=== PATIENT | male | born 1970 | race Caucasian/White ===

== ENCOUNTER 2017-11-19 08:51 | Inpatient (IN) | payer OTHER ==
[~2017-11-19] VITALS: Ht 175.3 cm; Wt 74.5 kg
[2017-11-19] VITALS (11 sets, daily range): BP systolic 102–153; BP diastolic 65–94
[2017-11-19 09:56] LABS: ALBUMIN 3.8 g/dL (3.4-5.0); ANION GAP 11 mmol/L (5-15); CALCIUM 10.2 mg/dL (8.5-10.1); CHLORIDE 104 mmol/L (98-107)
[2017-11-19 10:00] LABS: ALANINE AMINOTRANSFERASE 45 U/L (12-78); ALKALINE PHOSPHATASE 102 U/L (45-117); BILIRUBIN,TOTAL 1.8 mg/dL (0.2-1.0); CREATININE 1.19 mg/dL (0.7-1.3); TOTAL PROTEIN 8.4 g/dL (6.4-8.2)
[2017-11-19 10:19] LABS: MEAN CORPUSCULAR HEMOGLOBIN 36.1 pg (27.5-34.5); MEAN CORPUSCULAR VOLUME 106.2 fL (81-97); RED BLOOD COUNT 3.68 x10^6/uL (4.38-5.82); RED CELL DISTRIBUTION WIDTH 18.1 % (9.4-14.8)
[2017-11-19 10:29] LABS: MEAN PLATELET VOLUME 9.9 fL (7.4-10.4); PLATELET COUNT 102 x10^3/uL (130-400)
[2017-11-19 10:30] LABS: MD YES
[2017-11-19 10:35] LABS: BAND#(MANUAL) 0.26 x10^3/uL; BANDS%(MANUAL) 3 % (0-7); BASOS#(MANUAL) 0.09 x10^3/uL (0-0.1); BASOS% (MANUAL) 1 % (0-1); LYMPH#(MANUAL) 0.62 x10^3/uL (1-3.4); LYMPHS% (MANUAL) 7 % (22-44); MONOS% (MANUAL) 8 % (2-9); REACTIVE LYMPHS # (MANUAL) 0.09 x10^3/uL (0-0); REACTIVE LYMPHS % (MANUAL) 1 % (0-0); SEG#(MANUAL) 7.04 x10^3/uL (1.8-6.8); SEGS% (MANUAL) 80 % (42-75)
[2017-11-19 10:37] LABS: ANISOCYTOSIS 1+
[2017-11-19 10:38] LABS: <PLATELET ESTIMATE> DECREASED; <PLT MORPHOLOGY> NORMAL PLT MORPH; TARGET CELLS 1+
[2017-11-19 11:40] LABS: SALICYLATE LEVEL 6.2 mg/dL (2.8-20.0)
[2017-11-19 11:48] LABS: ACETAMINOPHEN < 2 mcg/mL (10-30)
[2017-11-19] MEDS ORDERED: SODIUM CHLORIDE 0.9% 1,000ML IVBOLUS ONE (12:00)
[2017-11-19] MEDS ORDERED: THIAMINE 200 MG in SODIUM CHLORIDE 0.9% 50 ML IV ONE (12:00)
[2017-11-19 12:09] LABS: CULTURE INDICATED? YES; MICROSCOPIC INDICATED
[2017-11-19 12:15] LABS: AMPHETAMINE SCREEN, URINE Negative (Negative); BARBITURATE SCREEN, URINE Negative (Negative); BENZODIAZEPINE SCREEN, URINE Negative (Negative); CANNABINOID SCREEN, URINE Negative (Negative); COCAINE SCREEN, URINE Negative (Negative); METHADONE SCREEN, URINE Negative (Negative); OPIATE SCREEN, URINE Negative (Negative)
[2017-11-19] MEDS ORDERED: THIAMINE 100 MG/ML, 2ML ONE (12:45)
[2017-11-19] MEDS ORDERED: MAGNESIUM SULFATE 1 GM, THIAMINE 100 MG, FOLIC ACID 1 MG, MVI ADULT 10 ML in SODIUM CHL... IV ONE (13:00)
[2017-11-19] MEDS ORDERED: SODIUM CHLORIDE FLUSH 10ML SYR IVF PRN (13:00)
[2017-11-19] MEDS: SODIUM CHLORIDE 0.9% 1,000 ML IV SCH (13:41)
[2017-11-19] MEDS ORDERED: ONDANSETRON 2MG/ML, 2ML IVPush PRN (14:00)
[2017-11-19] MEDS ORDERED: morphine SULFATE 10 MG/ML, 1ML IVPush PRN (14:00)
[2017-11-19] MEDS ORDERED: LORazepam 2 MG/ML, 1ML IVPush PRN (14:00)
[2017-11-19] MEDS ORDERED: POTASSIUM CHLORIDE 40 MEQ in SODIUM CHLORIDE 0.9% 500 ML IV ONE (14:00)
[2017-11-19] MEDS ORDERED: hydrALAzine 20 MG/ML, 1ML IVPush PRN (14:00)
[2017-11-19 14:33] LABS: FREE T4 (FREE THYROXINE) 0.81 ng/dL (0.76-1.46); THYROID STIMULATING HORMONE 1.52 mIU/L (0.358-3.740)
[2017-11-19] MEDS: BACITRACIN OPHTH OINT 500U/GM, 3.5 GM EACHEYE SCH ×2 (16:00→22:06)
[2017-11-19] MEDS: CEFTRIAXONE PMX 2GM/50ML 50 ML IV SCH (16:53)
[2017-11-19] MEDS: NICOTINE 21 MG/24 HR PATCH.TD24 TD SCH (16:54)
[2017-11-20 01:19] VITALS: BP 119/78
[2017-11-20] MEDS: LORazepam 2 MG/ML, 1ML IVPush PRN ×3 (03:08→18:16)
[2017-11-20 05:19] LABS: ALBUMIN 2.8 g/dL (3.4-5.0); ANION GAP 9 mmol/L (5-15); CALCIUM 8.3 mg/dL (8.5-10.1); CHLORIDE 112 mmol/L (98-107)
[2017-11-20 05:22] LABS: MEAN CORPUSCULAR HEMOGLOBIN 36.3 pg (27.5-34.5); MEAN CORPUSCULAR VOLUME 106.8 fL (81-97); MEAN PLATELET VOLUME 9.5 fL (7.4-10.4); PLATELET COUNT 81 x10^3/uL (130-400); RED CELL DISTRIBUTION WIDTH 17.6 % (9.4-14.8)
[2017-11-20 05:48] LABS: % IRON SATURATION 34 % (20-55); ALANINE AMINOTRANSFERASE 39 U/L (12-78); ALKALINE PHOSPHATASE 71 U/L (45-117); BILIRUBIN,TOTAL 0.8 mg/dL (0.2-1.0); CREATINE KINASE, TOTAL 1517 U/L (39-308); CREATININE 0.55 mg/dL (0.7-1.3); FOLATE LEVEL 11.6 ng/mL (3.1-17.5); IRON LEVEL 68 mcg/dL (65-175); TOTAL IRON BINDING CAPACITY 199 mcg/dL (250-450); TOTAL PROTEIN 6.4 g/dL (6.4-8.2)
[2017-11-20 06:23] LABS: BASOPHILS # (AUTO) 0.03 x10^3/uL (0-0.1); BASOPHILS % (AUTO) 1 % (0-1); EOSINOPHILS # (AUTO) 0.01 x10^3/uL (0-0.4); EOSINOPHILS % (AUTO) 0 % (1-7); LYMPHOCYTES # (AUTO) 1.32 x10^3/uL (1-3.4); LYMPHOCYTES % (AUTO) 19 % (22-44); MD SCAN; MONOCYTES % (AUTO) 10 % (2-9); NEUTROPHILS # (AUTO) 4.94 x10^3/uL (1.8-6.8); NEUTROPHILS % (AUTO) 71 % (42-75)
[2017-11-20] MEDS: PANTOPROZOLE 40MG TABLET PO SCH (07:30)
[2017-11-20 08:59] VITALS: BP 147/102
[2017-11-20] MEDS ORDERED: POTASSIUM CHLORIDE 80 MEQ in SODIUM CHLORIDE 0.9% 1,000 ML IV ONE (09:00)
[2017-11-20] MEDS: SODIUM CHLORIDE 0.9% 1,000 ML IV SCH ×2 (09:13→16:02)
[2017-11-20] MEDS: BACITRACIN OPHTH OINT 500U/GM, 3.5 GM EACHEYE SCH ×3 (09:14→20:13)
[2017-11-20] MEDS ORDERED: POTASSIUM CHLORIDE 40 MEQ in SODIUM CHLORIDE 0.9% 500 ML IV SCH (11:00)
[2017-11-20] MEDS: THIAMINE 100 MG in SODIUM CHLORIDE 0.9% 50 ML IV SCH (12:24)
[2017-11-20 15:20] VITALS: BP 122/84
[2017-11-20] MEDS: CEFTRIAXONE PMX 2GM/50ML 50 ML IV SCH (16:02)
[2017-11-20] MEDS: NICOTINE 21 MG/24 HR PATCH.TD24 TD SCH (16:07)
[2017-11-20 19:40] VITALS: BP 131/83
[2017-11-21] MEDS: LORazepam 2 MG/ML, 1ML IVPush PRN ×4 (02:47→22:28)
[2017-11-21 03:20] VITALS: BP 138/75
[2017-11-21 05:24] LABS: MEAN CORPUSCULAR HEMOGLOBIN 36.1 pg (27.5-34.5); MEAN CORPUSCULAR HGB CONC 34.1 g/dL (33.2-36.2); MEAN CORPUSCULAR VOLUME 105.8 fL (81-97); MEAN PLATELET VOLUME 9.1 fL (7.4-10.4); PLATELET COUNT 87 x10^3/uL (130-400); RED BLOOD COUNT 2.79 x10^6/uL (4.38-5.82); RED CELL DISTRIBUTION WIDTH 17.1 % (9.4-14.8)
[2017-11-21 05:25] LABS: ALANINE AMINOTRANSFERASE 45 U/L (12-78); ALBUMIN 2.6 g/dL (3.4-5.0); ANION GAP 10 mmol/L (5-15); CALCIUM 8.8 mg/dL (8.5-10.1); CHLORIDE 107 mmol/L (98-107); CREATININE 0.38 mg/dL (0.7-1.3)
[2017-11-21 05:31] LABS: ALKALINE PHOSPHATASE 95 U/L (45-117); BILIRUBIN,TOTAL 0.8 mg/dL (0.2-1.0); CREATINE KINASE, TOTAL 643 U/L (39-308); TOTAL PROTEIN 6.2 g/dL (6.4-8.2)
[2017-11-21 05:57] LABS: MD YES
[2017-11-21 05:59] LABS: BASOS#(MANUAL) 0.08 x10^3/uL (0-0.1); BASOS% (MANUAL) 1 % (0-1); EOS#(MANUAL) 0.15 x10^3/uL (0.0-0.4); EOS% (MANUAL) 2 % (1-7); LYMPHS% (MANUAL) 21 % (22-44); MONOS#(MANUAL) 0.76 x10^3/uL (0.3-2.7); MONOS% (MANUAL) 10 % (2-9); NRBC % (MANUAL) 1 % (0-1); SEG#(MANUAL) 5.02 x10^3/uL (1.8-6.8); SEGS% (MANUAL) 66 % (42-75)
[2017-11-21 06:00] LABS: <PLATELET ESTIMATE> DECREASED; <PLT MORPHOLOGY> NORMAL PLT MORPH; ANISOCYTOSIS 1+
[2017-11-21 06:02] LABS: POLYCHROMASIA 1+
[2017-11-21 07:37] VITALS: BP 123/82
[2017-11-21] MEDS ORDERED: POTASSIUM CHLORIDE 20 MEQ TAB.ER.PRT PO SCH (08:00)
[2017-11-21] MEDS: PANTOPROZOLE 40MG TABLET PO SCH (08:42)
[2017-11-21] MEDS: BACITRACIN OPHTH OINT 500U/GM, 3.5 GM EACHEYE SCH ×3 (08:42→22:28)
[2017-11-21] MEDS: ERGOCALCIFEROL 50,000 UNIT CAPSULE PO SCH (08:43)
[2017-11-21] MEDS: SODIUM CHLORIDE 0.9% 1,000 ML IV SCH ×3 (11:04→22:28)
[2017-11-21] MEDS: POTASSIUM CHLORIDE 20 MEQ PACKET PO SCH ×2 (11:05→13:00)
[2017-11-21] MEDS: THIAMINE 100 MG in SODIUM CHLORIDE 0.9% 50 ML IV SCH (12:37)
[2017-11-21 14:29] VITALS: BP 151/93
[2017-11-21 16:04] VITALS: BP 139/98
[2017-11-21] MEDS: CEFTRIAXONE PMX 2GM/50ML 50 ML IV SCH (16:14)
[2017-11-21] MEDS: NICOTINE 21 MG/24 HR PATCH.TD24 TD SCH (16:17)
[2017-11-21 20:00] VITALS: BP 163/94
[2017-11-22] MEDS: LORazepam 2 MG/ML, 1ML IVPush PRN (01:16)
[2017-11-22] MEDS ORDERED: HALOPERIDOL 5 MG/ML IM ONE ×3 (01:30→03:30)
[2017-11-22 02:00] VITALS: BP 133/88
[2017-11-22 05:56] LABS: BASOPHILS # (AUTO) 0.02 x10^3/uL (0-0.1); BASOPHILS % (AUTO) 0 % (0-1); EOSINOPHILS # (AUTO) 0.05 x10^3/uL (0-0.4); EOSINOPHILS % (AUTO) 1 % (1-7); LYMPHOCYTES # (AUTO) 1.71 x10^3/uL (1-3.4); LYMPHOCYTES % (AUTO) 26 % (22-44); MD NO; MEAN CORPUSCULAR HGB CONC 34.3 g/dL (33.2-36.2); MEAN CORPUSCULAR VOLUME 104.9 fL (81-97); MEAN PLATELET VOLUME 8.8 fL (7.4-10.4); MONOCYTES # (AUTO) 1.02 x10^3/uL (0.2-0.8); MONOCYTES % (AUTO) 16 % (2-9); NEUTROPHILS # (AUTO) 3.69 x10^3/uL (1.8-6.8); NEUTROPHILS % (AUTO) 57 % (42-75); PLATELET COUNT 126 x10^3/uL (130-400); RED BLOOD COUNT 2.88 x10^6/uL (4.38-5.82); RED CELL DISTRIBUTION WIDTH 17.2 % (9.4-14.8)
[2017-11-22 05:59] LABS: CHLORIDE 104 mmol/L (98-107)
[2017-11-22 06:18] LABS: ALANINE AMINOTRANSFERASE 53 U/L (12-78); ALBUMIN 2.7 g/dL (3.4-5.0); ALKALINE PHOSPHATASE 112 U/L (45-117); ANION GAP 9 mmol/L (5-15); BILIRUBIN,TOTAL 0.9 mg/dL (0.2-1.0); CALCIUM 9.1 mg/dL (8.5-10.1); CREATININE 0.34 mg/dL (0.7-1.3); TOTAL PROTEIN 6.6 g/dL (6.4-8.2)
[2017-11-22] MEDS: SODIUM CHLORIDE 0.9% 1,000 ML IV SCH ×2 (07:13→21:30)
[2017-11-22] MEDS: BACITRACIN OPHTH OINT 500U/GM, 3.5 GM EACHEYE SCH ×3 (08:51→21:29)
[2017-11-22] MEDS: ERGOCALCIFEROL 50,000 UNIT CAPSULE PO SCH (08:51)
[2017-11-22] MEDS: PANTOPROZOLE 40MG TABLET PO SCH (08:51)
[2017-11-22 08:56] VITALS: BP 130/93
[2017-11-22] MEDS ORDERED: POTASSIUM PHOSPHATE 44 MEQ in SODIUM CHLORIDE 0.9% 500 ML IV ONE (10:00)
[2017-11-22] MEDS ORDERED: MAGNESIUM SULFATE 6 GM in SODIUM CHLORIDE 0.9% 100 ML IV ONE (10:00)
[2017-11-22] MEDS: THIAMINE 100 MG in SODIUM CHLORIDE 0.9% 50 ML IV SCH (13:52)
[2017-11-22 14:12] VITALS: BP 133/85
[2017-11-22] MEDS: NICOTINE 21 MG/24 HR PATCH.TD24 TD SCH (16:27)
[2017-11-22] MEDS: CEFTRIAXONE PMX 2GM/50ML 50 ML IV SCH (16:27)
[2017-11-22 20:00] VITALS: BP 133/88
[2017-11-23 02:00] VITALS: BP 113/73
[2017-11-23] MEDS: SODIUM CHLORIDE 0.9% 1,000 ML IV SCH ×3 (05:20→23:24)
[2017-11-23 05:31] LABS: ALANINE AMINOTRANSFERASE 45 U/L (12-78); ALBUMIN 2.5 g/dL (3.4-5.0); ANION GAP 9 mmol/L (5-15); CALCIUM 8.1 mg/dL (8.5-10.1); CHLORIDE 104 mmol/L (98-107); CREATININE 0.34 mg/dL (0.7-1.3)
[2017-11-23 05:33] LABS: ALKALINE PHOSPHATASE 113 U/L (45-117); BILIRUBIN,TOTAL 0.6 mg/dL (0.2-1.0); TOTAL PROTEIN 6.3 g/dL (6.4-8.2)
[2017-11-23 07:42] VITALS: BP 131/81
[2017-11-23] MEDS ORDERED: BISACODYL 10 MG SUPP PR PRN (08:00)
[2017-11-23] MEDS ORDERED: LACTULOSE 20 GM/30 ML UDC PO PRN (08:00)
[2017-11-23] MEDS ORDERED: cloniDINE 0.1MG PATCH TD SCH (08:00)
[2017-11-23] MEDS: ERGOCALCIFEROL 50,000 UNIT CAPSULE PO SCH (08:36)
[2017-11-23] MEDS: VALPROIC ACID 250 MG CAPSULE PO SCH ×2 (08:36→20:56)
[2017-11-23] MEDS: DOCUSATE 100 MG CAPSULE PO SCH (08:36)
[2017-11-23] MEDS: GABAPENTIN 300 MG CAPSULE PO SCH ×3 (08:36→20:56)
[2017-11-23] MEDS: PANTOPROZOLE 40MG TABLET PO SCH (08:36)
[2017-11-23] MEDS: BACITRACIN OPHTH OINT 500U/GM, 3.5 GM EACHEYE SCH ×3 (08:37→20:56)
[2017-11-23] MEDS: THIAMINE 100 MG in SODIUM CHLORIDE 0.9% 50 ML IV SCH (12:15)
[2017-11-23 13:15] VITALS: BP 117/78
[2017-11-23] MEDS: NICOTINE 21 MG/24 HR PATCH.TD24 TD SCH (18:21)
[2017-11-23] MEDS: CEFTRIAXONE PMX 2GM/50ML 50 ML IV SCH (18:21)
[2017-11-23 19:02] VITALS: BP 109/73
[2017-11-23] MEDS: SENNA/DOCUSATE TABLET PO SCH (20:56)
[2017-11-24 01:41] VITALS: BP 130/81
[2017-11-24] MEDS: SODIUM CHLORIDE 0.9% 1,000 ML IV SCH ×2 (06:29→16:09)
[2017-11-24] MEDS: VALPROIC ACID 250 MG CAPSULE PO SCH ×2 (07:36→20:19)
[2017-11-24] MEDS: ERGOCALCIFEROL 50,000 UNIT CAPSULE PO SCH (07:36)
[2017-11-24] MEDS: GABAPENTIN 300 MG CAPSULE PO SCH ×3 (07:36→20:19)
[2017-11-24] MEDS: DOCUSATE 100 MG CAPSULE PO SCH (07:36)
[2017-11-24] MEDS: BACITRACIN OPHTH OINT 500U/GM, 3.5 GM EACHEYE SCH ×3 (07:36→20:19)
[2017-11-24] MEDS: PANTOPROZOLE 40MG TABLET PO SCH (07:36)
[2017-11-24 07:52] VITALS: BP 143/87
[2017-11-24] MEDS: THIAMINE 100 MG in SODIUM CHLORIDE 0.9% 50 ML IV SCH (12:07)
[2017-11-24 15:28] VITALS: BP 112/74
[2017-11-24] MEDS: NICOTINE 21 MG/24 HR PATCH.TD24 TD SCH (16:09)
[2017-11-24] MEDS ORDERED: CEFTRIAXONE 2,000 MG in DEXTROSE 5% 50 ML IV SCH (17:00)
[2017-11-24 19:30] VITALS: BP 117/74
[2017-11-24] MEDS: SENNA/DOCUSATE TABLET PO SCH (20:19)
[2017-11-25 02:31] VITALS: BP 130/84
[2017-11-25 05:15] LABS: MEAN CORPUSCULAR HGB CONC 33.7 g/dL (33.2-36.2); MEAN CORPUSCULAR VOLUME 106.6 fL (81-97); MEAN PLATELET VOLUME 8.2 fL (7.4-10.4); PLATELET COUNT 186 x10^3/uL (130-400); RED BLOOD COUNT 2.65 x10^6/uL (4.38-5.82)
[2017-11-25 05:21] LABS: ALBUMIN 2.3 g/dL (3.4-5.0); ANION GAP 7 mmol/L (5-15); CALCIUM 8.6 mg/dL (8.5-10.1); CHLORIDE 109 mmol/L (98-107)
[2017-11-25 05:25] LABS: ALANINE AMINOTRANSFERASE 34 U/L (12-78); ALKALINE PHOSPHATASE 99 U/L (45-117); BILIRUBIN,TOTAL 0.5 mg/dL (0.2-1.0); CREATININE 0.42 mg/dL (0.7-1.3); TOTAL PROTEIN 6.1 g/dL (6.4-8.2)
[2017-11-25 05:50] LABS: BASOPHILS # (AUTO) 0.04 x10^3/uL (0-0.1); BASOPHILS % (AUTO) 1 % (0-1); EOSINOPHILS # (AUTO) 0.07 x10^3/uL (0-0.4); EOSINOPHILS % (AUTO) 1 % (1-7); LYMPHOCYTES # (AUTO) 1.73 x10^3/uL (1-3.4); LYMPHOCYTES % (AUTO) 25 % (22-44); MD MORPH REVIEW ONLY; MONOCYTES # (AUTO) 1.05 x10^3/uL (0.2-0.8); MONOCYTES % (AUTO) 15 % (2-9); NEUTROPHILS % (AUTO) 58 % (42-75); TOXIC GRAN 1+
[2017-11-25 05:51] LABS: <PLATELET ESTIMATE> ADEQUATE; <PLT MORPHOLOGY> NORMAL PLT MORPH; ANISOCYTOSIS 1+; POLYCHROMASIA 1+
[2017-11-25] MEDS ORDERED: MAGNESIUM SULFATE PMX 4GM/100M 100 ML IV ONE (08:30)
[2017-11-25] MEDS: PANTOPROZOLE 40MG TABLET PO SCH (08:30)
[2017-11-25] MEDS ORDERED: POTASSIUM CHLORIDE 40 MEQ in SODIUM CHLORIDE 0.9% 500 ML IV ONE (08:30)
[2017-11-25] MEDS: ERGOCALCIFEROL 50,000 UNIT CAPSULE PO SCH (08:30)
[2017-11-25] MEDS: DOCUSATE 100 MG CAPSULE PO SCH (08:30)
[2017-11-25] MEDS: VALPROIC ACID 250 MG CAPSULE PO SCH ×2 (08:30→20:27)
[2017-11-25] MEDS: BACITRACIN OPHTH OINT 500U/GM, 3.5 GM EACHEYE SCH ×3 (08:30→20:27)
[2017-11-25] MEDS: GABAPENTIN 300 MG CAPSULE PO SCH ×3 (08:30→20:27)
[2017-11-25 08:31] VITALS: BP 136/79
[2017-11-25] MEDS: THIAMINE 100MG TABLET PO SCH ×2 (08:55→20:27)
[2017-11-25] MEDS: MAGNESIUM OXIDE 400 MG TABLET PO SCH ×2 (08:55→20:27)
[2017-11-25 13:49] VITALS: BP 125/80
[2017-11-25] MEDS: NICOTINE 21 MG/24 HR PATCH.TD24 TD SCH (16:26)
[2017-11-25 20:45] VITALS: BP 123/79
[2017-11-26 00:49] VITALS: BP 151/89
[2017-11-26 05:10] LABS: ALANINE AMINOTRANSFERASE 27 U/L (12-78); ALBUMIN 2.3 g/dL (3.4-5.0); ANION GAP 7 mmol/L (5-15); CALCIUM 8.5 mg/dL (8.5-10.1); CHLORIDE 109 mmol/L (98-107); CREATININE 0.41 mg/dL (0.7-1.3)
[2017-11-26 05:12] LABS: ALKALINE PHOSPHATASE 104 U/L (45-117); BILIRUBIN,TOTAL 0.5 mg/dL (0.2-1.0); TOTAL PROTEIN 6.1 g/dL (6.4-8.2)
[2017-11-26 07:57] VITALS: BP 125/82
[2017-11-26] MEDS: MAGNESIUM OXIDE 400 MG TABLET PO SCH ×2 (08:21→21:16)
[2017-11-26] MEDS: DOCUSATE 100 MG CAPSULE PO SCH (08:21)
[2017-11-26] MEDS: GABAPENTIN 300 MG CAPSULE PO SCH ×3 (08:21→21:16)
[2017-11-26] MEDS: BACITRACIN OPHTH OINT 500U/GM, 3.5 GM EACHEYE SCH ×3 (08:21→21:16)
[2017-11-26] MEDS: VALPROIC ACID 250 MG CAPSULE PO SCH ×2 (08:21→21:16)
[2017-11-26] MEDS: ERGOCALCIFEROL 50,000 UNIT CAPSULE PO SCH (08:21)
[2017-11-26] MEDS: PANTOPROZOLE 40MG TABLET PO SCH (08:21)
[2017-11-26] MEDS: THIAMINE 100MG TABLET PO SCH ×2 (08:21→21:16)
[2017-11-26] MEDS ORDERED: POTASSIUM CHLORIDE 40 MEQ in SODIUM CHLORIDE 0.9% 500 ML IV ONE ×2 (12:00→16:00)
[2017-11-26 13:25] VITALS: BP 123/70
[2017-11-26] MEDS: NICOTINE 21 MG/24 HR PATCH.TD24 TD SCH (16:06)
[2017-11-26 19:11] VITALS: BP 114/73
[2017-11-27 00:17] VITALS: BP 119/77
[2017-11-27 05:50] LABS: CHLORIDE 110 mmol/L (98-107)
[2017-11-27 05:54] LABS: ANION GAP 8 mmol/L (5-15); CALCIUM 9.2 mg/dL (8.5-10.1)
[2017-11-27 06:58] VITALS: BP 110/73
[2017-11-27] MEDS: THIAMINE 100MG TABLET PO SCH ×2 (07:40→21:40)
[2017-11-27] MEDS: PANTOPROZOLE 40MG TABLET PO SCH (07:40)
[2017-11-27] MEDS: GABAPENTIN 300 MG CAPSULE PO SCH ×3 (07:40→21:40)
[2017-11-27] MEDS: MAGNESIUM OXIDE 400 MG TABLET PO SCH ×2 (07:40→21:40)
[2017-11-27] MEDS: BACITRACIN OPHTH OINT 500U/GM, 3.5 GM EACHEYE SCH ×3 (07:40→21:40)
[2017-11-27] MEDS: DOCUSATE 100 MG CAPSULE PO SCH (07:41)
[2017-11-27] MEDS: VALPROIC ACID 250 MG CAPSULE PO SCH ×2 (07:41→21:40)
[2017-11-27] MEDS ORDERED: ERGOCALCIFEROL 50,000 UNIT CAPSULE PO ONE (09:00)
[2017-11-27 14:00] VITALS: BP 104/67
[2017-11-27] MEDS: NICOTINE 21 MG/24 HR PATCH.TD24 TD SCH (15:53)
[2017-11-27] MEDS ORDERED: LORazepam 2 MG/ML, 1ML IVPush PRN (17:30)
[2017-11-27 21:02] VITALS: BP 110/69
[2017-11-27] MEDS ORDERED: TEMAZEPAM 15 MG CAPSULE PO PRN (23:00)
[2017-11-28 01:58] VITALS: BP 130/81
[2017-11-28 06:45] VITALS: BP 104/67
[2017-11-28] MEDS: VALPROIC ACID 250 MG CAPSULE PO SCH (08:32)
[2017-11-28] MEDS: THIAMINE 100MG TABLET PO SCH (08:33)
[2017-11-28] MEDS: PANTOPROZOLE 40MG TABLET PO SCH (08:33)
[2017-11-28] MEDS: DOCUSATE 100 MG CAPSULE PO SCH (08:33)
[2017-11-28] MEDS: BACITRACIN OPHTH OINT 500U/GM, 3.5 GM EACHEYE SCH (08:33)
[2017-11-28] MEDS: MAGNESIUM OXIDE 400 MG TABLET PO SCH (08:33)
[2017-11-28] MEDS: GABAPENTIN 300 MG CAPSULE PO SCH (08:33)
[2017-11-28 12:58] VITALS: BP 104/70
[2017-11-28] MEDS ORDERED: FOLI-17 PO (14:32)
[2017-11-28] MEDS ORDERED: GABA300C10 PO (14:32)
[2017-11-28] MEDS ORDERED: BACI3.5O8 EACHEYE (14:32)
[2017-11-28] MEDS ORDERED: LACT20SO13 PO (14:32)
[2017-11-28] MEDS ORDERED: MAGN400T26 PO (14:32)
[2017-11-28] MEDS ORDERED: NICO-487 TD (14:32)
[2017-11-28] MEDS ORDERED: ERGO500017 PO (14:32)
[2017-11-28] MEDS ORDERED: THIA100T6 PO (14:32)
[2017-12-04] MEDS ORDERED: ERGOCALCIFEROL 50,000 UNIT CAPSULE PO SCH (09:00)
== END 2017-11-28 15:34 | disposition home or self-care (01) | DRG 56 ==
LOC: ED 12:54 → EDIP 12:55 → ED 13:06 → 4WST 15:32 → 4EST 21:18 → DCLOUNGE 11-28 15:25
PROVIDERS: ADMIT Internal Medicine; ATTEND Internal Medicine
DX: G31.2 Degeneration of nervous system due to alcohol (principal); E43 Unspecified severe protein-calorie malnutrition; D69.59 Other secondary thrombocytopenia; M62.82 Rhabdomyolysis; E83.42 Hypomagnesemia; E83.52 Hypercalcemia; E86.0 Dehydration; N39.0 Urinary tract infection, site not specified; F10.129 Alcohol abuse with intoxication, unspecified; D75.89 Other specified diseases of blood and blood-forming organs; E87.6 Hypokalemia; H10.9 Unspecified conjunctivitis; H55.09 Other forms of nystagmus; Z68.24 Body mass index [BMI] 24.0-24.9, adult
CPT/HCPCS: 36415; 70450; 71045; 80048; 80053; 80307; 80329; 81001; 82140; 82306; 82550; 82553; 82607; 82746; 83540; 83550; 83735; 84100; 84132; 84439; 84443; 85025; 87040; 87086; 93005; J0696; J3411; J3475; J3480; G0480; J1630; J2060; J7030; J7040